=== PATIENT | female | born 1960 | race Caucasian/White ===

== ENCOUNTER 2020-10-18 11:11 | Outpatient (CLI) | payer BC | END 2020-10-18 11:12 | disposition home or self-care (01) | LOC: CSHMAMMO 11:11 | PROVIDERS: ATTEND Family Medicine | DX: Z12.31 Encounter for screening mammogram for malignant neoplasm of breast (principal) | CPT/HCPCS: 77063; 77067 ==

== ENCOUNTER 2020-10-22 10:03 | Outpatient (CLI) | payer BC | END 2020-10-22 10:04 | disposition home or self-care (01) | LOC: CSHMAMMO 10:03 | PROVIDERS: ATTEND Family Medicine | DX: N95.1 Menopausal and female climacteric states (principal); M89.9 Disorder of bone, unspecified | CPT/HCPCS: 77080 ==

== ENCOUNTER 2020-10-29 14:01 | Outpatient (CLI) | payer BC | END 2020-10-29 14:02 | disposition home or self-care (01) | LOC: CSHRAD 14:01 | PROVIDERS: ATTEND Family Medicine | DX: M89.9 Disorder of bone, unspecified (principal) ==

== ENCOUNTER 2023-03-23 08:11 | Outpatient (CLI) | payer BC | END 2023-03-23 08:12 | disposition home or self-care (01) | LOC: CSHMAMMO 08:11 | PROVIDERS: ATTEND Student in an Organized Health Care Education/Training Program | DX: Z12.31 Encounter for screening mammogram for malignant neoplasm of breast (principal); Z80.3 Family history of malignant neoplasm of breast | CPT/HCPCS: 77063; 77067 ==

== ENCOUNTER 2023-10-07 10:12 | Outpatient (CLI) | payer BC | END 2023-10-07 10:13 | disposition home or self-care (01) | LOC: CSHRAD 10:12 | PROVIDERS: ATTEND Family Medicine | DX: M25.551 Pain in right hip (principal); M89.9 Disorder of bone, unspecified ==